=== PATIENT | male | born 1960 | race Caucasian/White ===

== ENCOUNTER → 2017-09-09 | Outpatient (CLI) | payer OTHER ==
[~2017-09-09] MED LIST: OMNIPAQUE 350 MG/ML, 75ML BOTTLE ONE
== END | disposition home or self-care (01) ==
LOC: RAD 14:40
PROVIDERS: ATTEND Family Medicine
DX: J32.3 Chronic sphenoidal sinusitis (principal); J32.0 Chronic maxillary sinusitis
CPT/HCPCS: 70486; 70487; Q9967